=== PATIENT | male | born 1975 | race Hispanic/Latino ===

== ENCOUNTER 2020-10-18 18:32 | Emergency (ER) | payer SELFPAY ==
--- NOTE | 2020-10-18 20:57 | RAD ---
LEFT FOOT RADIOGRAPHS THREE VIEWS: Date: 10-18-2020 PROVIDED CLINICAL HISTORY: Stepped on nail. FINDINGS: There is no evidence for fracture or other acute osseous abnormality. Alignment appears anatomic. Christy nt spaces appear preserved. No evidence for radiopaque foreign body. Vascular calcifications are seen . IMPRESSION: 1. No evidence for an acute osseous abnormality or radiopaque foreign body. POS: [facility]
== END 2020-10-18 21:16 | disposition home or self-care (01) ==
LOC: ERS 18:32
DX: S91.332A Puncture wound without foreign body, left foot, initial encounter (principal); W22.8XXA Striking against or struck by other objects, initial encounter; Z79.899 Other long term (current) drug therapy; Z79.84 Long term (current) use of oral hypoglycemic drugs; E11.9 Type 2 diabetes mellitus without complications; E78.5 Hyperlipidemia, unspecified

== ENCOUNTER 2021-08-01 17:36 | Observation (INO) | payer SELFPAY ==
[~2021-08-01 17:36] MED LIST: Iopamidol-370 76% 500 ML 1 ML ONE
[2021-08-01 18:26] LABS: #Monocytes 0.3 thou/uL (0.11-0.59); #Neutrophils 4.4 thou/uL (1.40-6.50); %Basophils 0.4 % (0.0-1.0); %Eosinophils 0.1 % (0.0-10.0); %Monocytes 4.7 % (0.0-10.0); %Neutrophils 64.8 % (42.0-75.0); Hemoglobin 16.1 g/dL (14.0-18.0); Mean Corpuscular HGB CONC 34.7 g/dL (32.0-36.0); Mean Corpuscular Hemoglobin 30.9 pg (27.0-31.0); Mean Platelet Volume 8.2 fL (7.4-10.4); Platelet Count 234 thou/uL (130-400); RBC Distribution Width 11.8 % (11.5-14.5); White Blood Cell (WBC) Count 6.8 thou/uL (4.8-10.8)
[2021-08-01 18:52] LABS: ALT (SGPT) 42 U/L (8-55); AST (SGOT) 39 U/L (5-34); Alkaline Phosphatase 106 U/L (40-110); Anion Gap 18 mmol/L (10-20); BUN (Urea Nitrogen) 13 mg/dL (8.9-20.6); Bilirubin, Total 0.5 mg/dL (0.2-1.2); Calc. Creatinine Clearance 0 mL/min (70-130); Calcium 8.8 mg/dL (7.8-10.44); Carbon Dioxide 21 mmol/L (22-29); Chloride 103 mmol/L (98-107); Globulin 3.7 g/dL (2.4-3.5); Glucose 275 mg/dL (70-105); Potassium 4.1 mmol/L (3.5-5.1); Protein, Total 7.7 g/dL (6.0-8.3); Sodium 138 mmol/L (136-145)
[2021-08-01] MEDS ORDERED: Aspirin 325 MG TAB ONE (19:49)
[2021-08-01] MEDS ORDERED: Ondansetron PF 4 MG/2 ML Vial ONE (19:49)
[2021-08-01 21:25] LABS: Lactic Acid 2.9 mmol/L (0.5-2.2)
[2021-08-01] MEDS ORDERED: Multivitamins, Adult 10 ML, Thiamine HCl 100 MG, Folic Acid 1 MG in Dextrose 5 %-0.45 %... IV SCH (22:15)
[2021-08-01 22:36] LABS: Acetaminophen Less than 6.0 mcg/mL (10.0-30.0); Alcohol 48 mg/dL (Less than 10); Salicylate Less than 8.0 mg/dL (15.0-30.0)
[2021-08-01] MEDS ORDERED: Nitroglycerin 2% Ointment 1 INCH/1 GM Packet ONE (22:46)
[2021-08-02] MEDS ORDERED: Lorazepam 1 MG TAB PO PRN ×2
[2021-08-02 02:09] LABS: Lactic Acid 2.2 mmol/L (0.5-2.2)
[2021-08-02] MEDS ORDERED: Lorazepam 1 MG TAB PO SCH ×2 (02:15→03:00)
[2021-08-02] MEDS ORDERED: Lorazepam 2 MG/ML VIAL IM PRN ×2 (02:15→03:00)
[2021-08-02] MEDS ORDERED: Ondansetron ODT 4 MG TAB PO PRN ×2 (02:15→03:00)
[2021-08-02] MEDS ORDERED: Acetaminophen 325 MG TAB PO PRN (02:42)
[2021-08-02] MEDS ORDERED: Nitroglycerin 0.4 MG TAB (25 Tab Bottle) SL PRN (02:42)
[2021-08-02] MEDS ORDERED: Dextrose 50% Abboject 50 ML SYRINGE SLOW IVP PRN (02:47)
[2021-08-02] MEDS ORDERED: Dextrose 5% in Water 1,000 ML IV PRN (02:47)
[2021-08-02] MEDS ORDERED: HumaLOG 300 UNITS/3 ML VIAL SC PRN (02:47)
[2021-08-02] MEDS ORDERED: Thiamine HCl 200 MG/2 ML VIAL SLOW IVP SCH ×2 (03:00)
[2021-08-02] MEDS ORDERED: Electrolyte Replacement Protocol FS PRN (03:00)
[2021-08-02] MEDS: Lactated Ringer's 1,000 ML IV SCH ×2 (03:29→11:19)
[2021-08-02 04:01] VITALS: BMI 38.0
[2021-08-02 05:06] LABS: #Lymphocytes 1.8 thou/uL (1.20-3.40); #Monocytes 0.5 thou/uL (0.11-0.59); #Neutrophils 6.3 thou/uL (1.40-6.50); %Basophils 0.5 % (0.0-1.0); %Eosinophils 0.3 % (0.0-10.0); %Lymphocytes 21.2 % (21.0-51.0); %Monocytes 5.7 % (0.0-10.0); %Neutrophils 72.3 % (42.0-75.0); Hemoglobin 14.6 g/dL (14.0-18.0); Mean Corpuscular HGB CONC 36.3 g/dL (32.0-36.0); Mean Corpuscular Hemoglobin 32.2 pg (27.0-31.0); Mean Corpuscular Volume 88.8 fL (78.0-98.0); Mean Platelet Volume 8.2 fL (7.4-10.4); Platelet Count 192 thou/uL (130-400); RBC Distribution Width 11.7 % (11.5-14.5); Red Blood Cell (RBC) Count 4.54 mill/uL (4.70-6.10); White Blood Cell (WBC) Count 8.7 thou/uL (4.8-10.8)
[2021-08-02 05:19] LABS: Hemoglobin A1c 9.9 % (4.0-6.0)
[2021-08-02 05:22] LABS: Anion Gap 13 mmol/L (10-20); BUN (Urea Nitrogen) 10 mg/dL (8.9-20.6); Calc. Creatinine Clearance 190 mL/min (70-130); Calcium 8.2 mg/dL (7.8-10.44); Carbon Dioxide 23 mmol/L (22-29); Cardiac Risk 8.9 (Less than 4.5); Chloride 102 mmol/L (98-107); Cholesterol 178 mg/dl (< 200 Desired); Glucose 247 mg/dL (70-105); HDL Cholesterol 20 mg/dL (>60 Neg Risk); Potassium 3.6 mmol/L (3.5-5.1); Sodium 134 mmol/L (136-145)
[2021-08-02 05:24] LABS: Troponin I Less than 0.010 ng/mL (< 0.028)
[2021-08-02 05:59] LABS: Triglycerides 1018 mg/dL (Less than 150)
[2021-08-02 08:45] LABS: Troponin I Less than 0.010 ng/mL (< 0.028)
[2021-08-02] MEDS ORDERED: Multivit, Therapeutic 1 TAB PO SCH ×2 (09:00)
[2021-08-02] MEDS ORDERED: Aspirin Chewable 81 MG TAB PO SCH (09:00)
[2021-08-02] MEDS ORDERED: Folic Acid 1 MG TAB PO SCH ×2 (09:00)
[2021-08-02] MEDS: Lorazepam 1 MG TAB PO SCH ×2 (09:16→15:28)
[2021-08-02] MEDS ORDERED: ADENOSINE 60 MG/20 ML VIAL ONE (09:38)
[2021-08-02 13:44] LABS: Bacteria/HPF None Seen HPF (None Seen); Bilirubin Negative (Negative); Blood, Urine Negative (Negative); Clarity Clear (Clear); Glucose, Urine (Dipstick) >=1000 mg/dL (Negative); Ketone, Urine Negative (Negative); Leukocyte Negative Leu/uL (Negative); Nitrite Negative (Negative); Protein, Urine (Dipstick) 20 mg/dL (Neg-Trace); RBC/HPF None Seen HPF (0-3); Specific Gravity, Urine 1.012 (1.002-1.036); Squamous Epithelial None Seen HPF (0-3); Urobilinogen Normal mg/dL (Less than 2); WBC/HPF 0-3 HPF (0-3)
[2021-08-02 15:27] VITALS: TEMP 98.8
[2021-08-02 15:29] VITALS: BP 159/95
[2021-08-02 18:30] LABS: SARS-CoV-2 PCR by NAA Not Detected (NotDetected)
[2021-08-03] MEDS ORDERED: Lorazepam 1 MG TAB PO PRN (03:00)
[2021-08-03] MEDS ORDERED: Lorazepam 1 MG TAB PO SCH (03:00)
[2021-08-04] MEDS ORDERED: Lorazepam 1 MG TAB PO PRN (03:00)
[2021-08-04] MEDS ORDERED: Lorazepam 0.5 MG TAB PO SCH (03:00)
[2021-08-05] MEDS ORDERED: Lorazepam 0.5 MG TAB PO PRN (03:00)
[2021-08-05] MEDS ORDERED: Thiamine 100 MG TAB PO SCH ×2 (09:00)
[2021-08-05] MEDS ORDERED: FLU VACC QS2021-22(6MOS UP)/PF 60 MCG/0.5 ML SYRINGE IM ONE (09:00)
== END 2021-08-02 18:30 | disposition home or self-care (01) ==
LOC: ERS 17:36 → 2NO 22:25
PROVIDERS: ADMIT Internal Medicine; ATTEND Family Medicine
DX: R07.89 Other chest pain (principal); E11.10 Type 2 diabetes mellitus with ketoacidosis without coma; F10.10 Alcohol abuse, uncomplicated; E78.1 Pure hyperglyceridemia; I10 Essential (primary) hypertension; I08.1 Rheumatic disorders of both mitral and tricuspid valves; Z91.14 Patient's other noncompliance with medication regimen; Z79.84 Long term (current) use of oral hypoglycemic drugs; Z79.899 Other long term (current) drug therapy; Z20.822 Contact with and (suspected) exposure to COVID-19; Y90.2 Blood alcohol level of 40-59 mg/100 ml
CPT/HCPCS: 36415; 36416; 71045; 71275; 78452; 80048; 80053; 80061; 80307; 81001; 83036; 83605; 83690; 84484; 85025; 87040; 93005; 93017; 93306; 96365; 96375; A9500; G0378; J2405; J3411; J7042; J7120; Q0162; U0003; U0005

== ENCOUNTER 2022-05-04 08:18 | Emergency (ER) | payer SELFPAY ==
[2022-05-04] MEDS ORDERED: Ketorolac Tromethamine 30 MG/ML VIAL ONE (09:31)
== END 2022-05-04 09:42 | disposition home or self-care (01) ==
LOC: ERS 08:18
DX: E11.9 Type 2 diabetes mellitus without complications (principal); L03.115 Cellulitis of right lower limb
CPT/HCPCS: 96372; J1885

== ENCOUNTER 2023-09-09 20:55 | Emergency (ER) | payer SELFPAY | END 2023-09-09 23:54 | disposition home or self-care (01) | LOC: ERS 20:55 | DX: L60.0 Ingrowing nail (principal); E11.9 Type 2 diabetes mellitus without complications; I10 Essential (primary) hypertension; Z79.84 Long term (current) use of oral hypoglycemic drugs | CPT/HCPCS: 99283 ==